=== PATIENT | female | born 1970 | race Caucasian/White ===

== ENCOUNTER → 2019-08-16 | Outpatient (CLI) | payer BC ==
[~2019-08-16] MED LIST: B/P MED; ZOLOFT
--- NOTE | 2019-08-16 11:43 | Diagnostic Imaging Report ---
Indication: Cough PA and lateral chest Heart size and pulmonary vascularity are normal. Lungs are clear. There are no effusions or pneumothoraces. IMPRESSION: Negative chest Dictated by: Dictated on workstation # [id number]
== END ==
LOC: RAD 11:07
PROVIDERS: ATTEND Nurse Practitioner Family
DX: R05 Cough (principal)
CPT/HCPCS: 71046